=== PATIENT | male | born 1990 | race Caucasian/White ===

== ENCOUNTER 2024-04-26 00:25 | Emergency (ER) | payer SELFPAY ==
[~2024-04-26] VITALS: Ht 165.1 cm; Wt 68.0 kg
[2024-04-26 00:32] VITALS: BP 152/105; PULSE 108; RESP 18; TEMP 97.3; O2SAT 98
[2024-04-26 00:50] VITALS: BP 152/105; TEMP 97.3; O2SAT 97
[2024-04-26] MEDS: ALBUTEROL 0.083% 2.5 MG/3 ML NEBU INH ONE (01:04)
[2024-04-26 01:05] VITALS: PULSE 107; RESP 20; O2SAT 95; O2SAT 96
[2024-04-26 01:07] LABS: BASOPHILS # (AUTO) 0.1 K/uL (0.00-0.22); BASOPHILS % (AUTO) 2.1 % (0.0-2.0); EOSINOPHILS % (AUTO) 1.2 % (0.0-4.0); HEMATOCRIT 27.7 % (36-52); LYMPHOCYTES # (AUTO) 1.5 K/uL (2.0-11.5); LYMPHOCYTES % (AUTO) 46.2 % (20.5-51.1); MEAN CORPUSCULAR HEMOGLOBIN 23 pg (27-31); MEAN CORPUSCULAR HGB CONC 33 g/dL (33-37); MONOCYTES # (AUTO) 0.3 K/uL (0.8-1.0); MONOCYTES % (AUTO) 9.4 % (1.7-9.3); NEUTROPHILS # (AUTO) 1.3 K/uL (1.8-7.7); NEUTROPHILS % (AUTO) 41.1 % (42.2-75.2); PLATELET COUNT (AUTO) 137 K/uL (140-450); RED BLOOD CELL COUNT(AUTO) 3.85 MIL/uL (4.20-6.10); RED CELL DISTRIBUTION WIDTH 19.4 % (11.6-13.7); WHITE BLOOD COUNT (AUTO) 3.2 K/uL (4.8-10.8)
[2024-04-26 01:16] LABS: ANION GAP 18.6 (8-16); CALCIUM 8.2 mg/dL (8.5-10.1); CARBON DIOXIDE 21.6 mmol/L (21-32); CREATININE 0.6 mg/dL (0.6-1.3); POTASSIUM 3.2 mmol/L (3.5-5.1)
[2024-04-26 01:35] LABS: ALANINE AMINOTRANSFERASE 42 U/L (12-78); ALBUMIN 3.7 g/dL (3.4-5.0); ALKALINE PHOSPHATASE 96 U/L (50-136); ASPARTATE AMINOTRANSFERASE 112 U/L (15-37); BILIRUBIN,DIRECT 0.2 mg/dL (0.0-0.3); TOTAL BILIRUBIN 0.5 mg/dL (0.0-1.0); TOTAL PROTEIN, SERUM 8.4 g/dL (6.4-8.2)
[2024-04-26 01:38] LABS: ALCOHOL, BLOOD 453 mg/dL (<10)
[2024-04-26] MEDS: methylPREDNISolone SS 125 MG/2 ML VIAL IVP ONE (01:40)
[2024-04-26] MEDS: diphenhydrAMINE 50 MG/ML VIAL IVP ONE (01:40)
[2024-04-26 03:35] VITALS: O2SAT 95
[2024-04-26] MEDS ORDERED: NACL 0.9% 1,000 ML IV ONE (04:10)
[2024-04-26] MEDS ORDERED: PRED20TA5 PO (04:13)
[2024-04-26] MEDS ORDERED: FAMO-90 PO (04:13)
[2024-04-26] MEDS ORDERED: BEN50 PO (04:13)
== END 2024-04-26 04:23 | disposition home or self-care (01) ==
LOC: MED 00:25
DX: T78.40XA Allergy, unspecified, initial encounter (principal); F10.129 Alcohol abuse with intoxication, unspecified; Z79.899 Other long term (current) drug therapy; X58.XXXA Exposure to other specified factors, initial encounter; Y90.8 Blood alcohol level of 240 mg/100 ml or more
CPT/HCPCS: 36415; 71045; 80048; 80076; 83880; 84484; 85025; 94640; 96374; 96375; 99284; G0482; J1200; J2919; J7613; Q0092